=== PATIENT | female | born 1960 | race Caucasian/White ===

== ENCOUNTER 2018-01-27 10:36 | Emergency (ER) | payer OTHER ==
--- OUTSIDE RECORDS SUMMARY | 2018-01-27 10:42 | XMS REPORT ---
:1960 External Reference #:[id number] Author Organization [facility] Address [address] [place] [address] Phone [phone] Care Team Providers Name Role Phone Carla Schwartz M.D. Care Team Information Foundation Relations Manager Unavailable Carla Schwartz M.D. Primary Care Physician Unavailable Payers Type Date Identification Numbers Payment Provider Subscriber Commercial Policy Number: [id number] Abena Collier PayID: [id number] [address] [address] [place] [address] Medigap Part B Effective: 2016 Policy Number: Marcio Dumont [id number] Expires: 2017 PayID: [id number] [address] Attn: [place] [address] Medigap Part B Effective: 2017 Policy Number: Tim Collier [id number] PayID: [id number] [address] [place] [address] Problems Description No Information Family History Date Family Member(s) Problem(s) Comments Father Osteoarthritis Father Hypertension Father Prostate Cancer Mother Miller Thyroiditis Paternal Grandfather due to Lung Cancer () Paternal Grandmother due to CAD () Maternal Grandfather due to NC () Maternal Grandmother due to Stroke () Maternal Grandmother due to Diabetes () Social History Type Date Description Comments Marital Status . Lives With Spouse Diet Healthy, Well Balanced Sleep Typically sleeps 7 hours a night Cigarette Use Never Smoked Cigarettes ETOH Use Rare a couple times per year Recreational Drug Use Never Used Drugs Exercise Type/Frequency Running Every day with the dog Guns in Home Yes, Locked Up Smoke Alarms Yes Smoke Alarms Carbon Monoxide Detector: Yes Currently Active Patient is currently sexually active Dom Violence Screen screening has not been done P/e safe Allergies, Adverse Reactions, Alerts Date Description Reaction Status Severity Comments 03/07/2017 NKDA active 03/07/2017 Dust active 03/07/2017 Mold active Medications Medication Date Status Form Strength Qnty SIG Indications Ordering Provider Emla 01/16/ Active Cream 2.5-2.5% 5gm apply thin N94.11 2017 layer to Berkley, vaginal GREEN MEAT PACKER introitus 40-60 minutes prior to pap exam Levothyroxine 04/23/ Active Tablets 125mcg 90tabs 1 by mouth E03.9 Ruth C. Sodium 2018 every day [place] Ventolin HFA 03/07/ Active Aerosol 108(90Base 18gm take 1-2 J45.909 Ruth Wolf 2016 ) mcg/Act puffs [place] PILOT STEAM YACHT every 4 hours as needed for wheezing or tightness in the chest Osteo Bi-Flex / Active Tablets 1 by mouth Unknown Advanced Triple 0000 every day Strength Multivitamin / Active Tablets 1 by mouth Unknown And Minerals 0000 every day Vitamin D3 00/ Active Tablets once daily Unknown Complete 0000 Fish Oil / Active Capsules 1000mg take one Unknown 0000 capsule by mouth every day (heart health) Levothyroxine 03/07/ Hx Tablets 137mcg 30tabs Take one E03.9 Ruth C. Sodium 2016 - by mouth Mario Alberto 04/23/ daily PILOT STEAM YACHT 2018 Synthroid / Hx Tablets 137mcg 1 by mouth Unknown 0000 - every day 2017 Vital Signs Date Vital Result Comment 01/16/2018 BP Systolic 122 mmHg BP Diastolic 72 mmHg Heart Rate 60 /min Body Temperature 97.9 F Height 65.5 inches 5'5.50" Weight 122.00 lb BMI (Body Mass Index) 20.0 kg/m2 03/07/2017 BP Systolic 128 mmHg BP Diastolic 80 mmHg Heart Rate 60 /min Body Temperature 98.2 F Respiratory Rate 16 /min Height 65.5 inches 5'5.50" Weight 122.00 lb BMI (Body Mass Index) 20.0 kg/m2 Results Test Date Test Result H/L Range Note Laboratory test finding 06/11/2017 TSH 0.51 mIU/L 0.50-6.00 Laboratory test finding 04/23/2017 TSH 0.43 mIU/L Low 0.50-6.00 1 Laboratory test finding 03/07/2017 TSH 0.48 mIU/L Low 0.50-6.00 2 Free T4 1.36 ng/dL 0.75-1.54 Free T3 2.35 pg/mL 2.00-4.90 1 RESULTS VERIFIED BY REPEAT ANALYSIS 2 RESULTS VERIFIED BY REPEAT ANALYSIS Procedures Description No Information Encounters Type Date Location Provider CPT E/M Dx Office Visit 03/07/2017 2:30p [facility] Office [place], [place] [address] E03.9 S66.107S J45.909 Plan of Care 01/16/2018 - Dian Gooden, FNPZ12.39 Encounter for oth screening for malignant neoplasm of bukzqqL99.220 Encounter for screening for lipoid disordersNew Labs:CCS-Comp And Lipid (Fma)T4 & TSHCBC Electronic (Fma New) Z12.11 Encounter for screening for malignant neoplasm of colonComments:referral provided to the docs who do this testN94.11 Superficial (introital) dyspareuniaNew Medication:Emla 2.5-2.5 %M25.561 Pain in right kneeAllComments:~B _~U_Medication Management~b_~u_ Patient Understands medications he 's taking? Yes No Are there Barriers to Adherence? Yes No Has the patient been asked about herbal supplements and therapies, and OTC meds? Yes No As always, we strongly encourage a healthy diet and makingphysical activity a part of your every day life. If you have questions about how or where to start, please contact the office.
[2018-01-27 11:06] VITALS: BP 126/91
[2018-01-27] MEDS ORDERED: Tetracaine 0.5% OPTH.SOL 4 ML* 1 DROP BTL RIGHT EYE ONE (11:06)
[2018-01-27] MEDS ORDERED: Fluorescein Sodium TOPICAL* 1 MG TEST STRIP OPHTHALMIC ONE (11:06)
--- NOTE | 2018-01-27 11:08 | UC ---
Eye Complaint HPI - HPI Summary HPI Summary: 57 yo female presents with RIGHT eye injury. She tells me that yesterday she was walking her dog and bent down to clean up after him when a stick from a plant poked her in the RIGHT eye. She had mild pain at the time that has persisted into today. Eye is mildly red. Denies vision changes. Does not wear contacts. - History of Current Complaint Chief Complaint: UCEye Stated Complaint: R EYE COMPLAINT Time Seen by Provider: 01/27/18 11:08 Hx Obtained From: Patient Onset/Duration: Sudden Onset Timing: Constant Severity Initially: Mild Severity Currently: Mild Pain Intensity: 2 Pain Scale Used: 0-10 Numeric - Allergies/Home Medications Allergies/Adverse Reactions: Allergies Allergy/AdvReac Type Severity Reaction Status Date / Time No Known Allergies Allergy Verified 01/27/18 11:06 PMH/Surg Hx/FS Hx/Imm Hx Endocrine History: Hypothyroidism - Surgical History Surgical History: Yes Surgery Procedure, Year, and Place: tonsils - Family History Known Family History: Positive: None - Social History Occupation: Employed Full-time Lives: With Family Alcohol Use: Rare Substance Use Type: None Smoking Status (MU): Never Smoked Tobacco Review of Systems Constitutional: Negative Skin: Negative Eyes: Eye Redness - Right ENT: Negative Respiratory: Negative Cardiovascular: Negative Neurovascular: Negative Neurological: Negative Psychological: Negative All Other Systems Reviewed And Are Negative: Yes Physical Exam - Summary Physical Exam Summary: GENERAL: WDWN. No pain distress. SKIN: No rashes, sores, lesions, or open wounds. HEENT: Head: AT/NC Eyes: EOM intact. PERRLA. RIGHT EYE: Mild scleral injection. Mild clear tearing. No conjunctiva inflammation. LEFT EYE: Conjunctiva clear without inflammation or discharge. No FBs appreciated. Fluorescein exam right eye: WNL. No area of increased uptake, abrasion, or brandy sign. Nose: NTTP maxillary and frontal sinus. NECK: Supple. Nontender. No lymphadenopathy. CHEST: No accessory muscle use. Breathing comfortably and in no distress. CV: Pulses intact. Cap refill <2seconds NEURO: Alert. PSYCH: Age appropriate behavior. Triage Information Reviewed: Yes Vital Signs: Initial Vital Signs Temp 98.7 F 01/27/18 10:59 Pulse 71 01/27/18 10:59 Resp 18 10/09/18 10:59 BP 126/91 01/27/18 10:59 Pulse Ox 98 01/27/18 10:59 Vital Signs Reviewed: Yes Eye Complaint Course/Dx - Course Course Of Treatment: Right eye injury - will cover her with anbx eye drops as she had an introduction of foreign material. - Differential Dx/Diagnosis Provider Diagnoses: Right eye injury Discharge - Sign-Out/Discharge Documenting (check all that apply): Patient Departure All imaging exams completed and their final reports reviewed: No Studies - Discharge Plan Condition: Stable Disposition: HOME Prescriptions: Ofloxacin 0.3% (Eye Drop) [Ocuflox OPTH 0.3% (Eye Drop)] 1 drop RIGHT EYE QID # 1 btl Patient Education Materials: Corneal Abrasion (ED) Referrals: Carla Schwartz MD [Primary Care Provider] - Additional Instructions: If you develop a fever, shortness of breath, chest pain, new or worsening symptoms - please call your PCP or go to the ED. - Billing Disposition and Condition Condition: STABLE Disposition: Home
== END 2018-01-27 11:39 | disposition home or self-care (01) ==
LOC: UCEAST 10:36
DX: S05.91XA Unspecified injury of right eye and orbit, initial encounter (principal); W22.8XXA Striking against or struck by other objects, initial encounter; Y93.K1 Activity, walking an animal; Y92.9 Unspecified place or not applicable
CPT/HCPCS: 99212; A9270-GY; G0463

== ENCOUNTER 2018-03-20 08:20 | Day surgery (SDC) | payer OTHER ==
[~2018-03-20 08:20] MED LIST: Buffered Lidocaine 0.9% SYRIN* 5 ML/SYR SYRINGE INTRADERM ONE; Sodium Citrate/Citric Acid* 15 ML UDC PO ONE
[2018-03-20] MEDS ORDERED: ceFAZolin 2 GM PREMIX in ORs 2 GM/50 ML BAG IVPB ONE (08:41)
[2018-03-20] MEDS ORDERED: Sodium Citrate/Citric Acid* 15 ML UDC ONE (08:41)
[2018-03-20] MEDS ORDERED: EPINEPHRINE 1 MG/ML 1 ML VIAL ONE (08:52)
[2018-03-20] MEDS ORDERED: Bupivacaine 0.5% PF 10 ML VIAL INJ ONE (09:37)
[2018-03-20] MEDS ORDERED: Midazolam* 1 MG/ML 2 ML VIAL (2 MG) ONE ×2 (12:06→12:16)
[2018-03-20] MEDS ORDERED: Chloroprocaine 2%* 20 ML VIAL ONE (12:06)
[2018-03-20] MEDS ORDERED: fentaNYL* 50 MCG/ML 2 ML VIAL (100 MCG VIAL) IV PRN (13:22)
[2018-03-20] MEDS ORDERED: Naloxone* 0.4 MG/ML 1 ML VIAL IV PRN (13:22)
[2018-03-20] MEDS ORDERED: Ketorolac INJ* 30 MG/ML 1 ML VIAL IV PRN (13:22)
[2018-03-20 14:57] VITALS: BP 145/96
--- NOTE | 2018-03-23 07:50 | OP ---
OPERATIVE NOTE: DATE OF OPERATION: 03/20/18 DATE OF : 56 SURGEON: Addi Ogden MD. ASSISTANTS: DENA Holland. A physician content assistant was required for the length of procedure for assistance with positioning, knee manipulation, and closure. ANESTHESIOLOGIST: Jovany Starkey DO. ANESTHESIA: Spinal anesthesia. PRE-OP DIAGNOSES: 1. Right knee displaced medial meniscus tear. 2. Right knee osteoarthritis. POST-OP DIAGNOSES: 1. Right knee displaced medial meniscus tear. 2. Right knee osteoarthritis. OPERATIVE PROCEDURES: 1. Right knee arthroscopic partial medial meniscectomy. 2. Right knee arthroscopic debridement including removal of synovitic tissue anterior and removal of osteophytes just anterior to the anterior horn of the medial meniscus. IV FLUIDS: 550 mL crystalloid. ANTIBIOTICS: Ancef 2 g IV. TOURNIQUET TIME: 26 minutes at 300 mmHg. ILQY-VY-ULMX TIME: 25 minutes. ARTHROSCOPIC FLUID UTILIZED: One bag, containing 3 L for approximately 3 L of arthroscopic fluid uti lized. SPECIMEN: None. IMPLANTS: None. COMPLICATIONS: None. ESTIMATED BLOOD LOSS: Minimal. 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 The patient had a d iscrete injury several years ago when getting out of a car, when she felt a discrete shooting pain ab out the medial joint line. The medial knee pain has worsened with time. The patient had been consul wendy with another orthopedic surgeon in the past, who recommended a total knee replacement, but the pa tient loves to run and did not want a knee arthroplasty. Because the patient had sharp, shooting occa sional pain in the medial aspect of the knee, someone had ordered an MRI of the knee. At her first [facility] visit with me, I reviewed this MRI. Besides clear arthritic changes, with nearly nboo-yw-mqml joint space narrowing in the medial compartment and osteophytes, the patient also had a clear large d isplaced meniscus fragment, interposed between the central weightbearing areas of medial femoral cond yle and medial tibial plateau. I explained to the patient that I do not typically recommend knee arthroscopy in the setting of such advanced arthritis. There are exceptions such as loose bodies that are symptomatic and large displac ed meniscal tears that are symptomatic. The patient was interested in surgery. I described risks and potential complications of surgery. I told the patient that given her arthriti s, she might have some temporary worsening of the pain postoperatively. This could even be permanent . The patient will need to have to hold off on running for at least 6 weeks postoperative to allow s ome recovery. The surgery would be a trauma in and of itself that might exacerbate some of her arthr itis symptoms. We opted to move forward with surgery. DESCRIPTION OF PROCEDURE: In preoperative holding, the patient signed a written consent. Operative extremity was marked in preoperative holding. The patient was taken back to the operating room and pl aced supine on the operating room table. Dr. Jovany Starkey of anesthesia then performed a spinal nerve block. He also provided some general s edation. A tourniquet was placed around the right proximal thigh. The right distal thigh was placed in a circumferential thigh cuellar. Bed was elevated and the foot of the bed was dropped. Right low er extremity was prepped and draped. Surgical time-out was performed. Esmarch was applied and the t ourniquet was elevated to 300 mmHg. Anterolateral knee arthroscopy portal was established using standard technique. I encountered signif icant synovitis anteriorly. I established an anteromedial arthroscopy portal under direct visualizat ion. I entered an arthroscopic shaver and used it to debride some of this anterior synovitic tissue. There were osteophytes on the inferior aspect of the patella. There were some wear of the trochlea r groove. I proceeded to the medial compartment. There was a prominent osteophyte about the anterio r aspect of the medial tibial plateau just central and anterior to the anterior horn of the medial me niscus. I then looked into the medial compartment and noted a complex meniscal tear of the body. It was not displaced quite as much as preoperative MRI demonstrated, but there was displacement into the central weightbearing portion of this compartment. A large aspect of the medial tibial plateau had grade 4 changes to its articular cartilage, with complete loss of articular cartilage. The patient's ACL and PCL were intact. I then made a new anteromedial knee arthroscopy protal under direct visualization to work on the medi al compartment. I debrided the medial meniscus back to a stable rim of tissue using an arthroscopic shaver and meniscus biters. I worked through the medial compartment and then through the lateral com partment. To work through the lateral compartment, I established a new anterolateral portal. I also used my sha romy on forward mode to debride the osteophytes about the anterior aspect of the medial tibial plateau , as it was blocking an instrument from entering the compartment and performing work. I probed the r eminder of meniscus. It was stable. I then explored the lateral compartment of the knee. There was no meniscus tear present there. Ther e were some degenerative changes of the articular cartilage. I removed instruments and fluids from the knee. I closed skin incisions with figure-of-8 and 12 stit ches using nylon 3-0 suture. Xeroform, 4x4s, ABDs, sterile Webril, Zion bandage from foot to proximal thigh, cooling unit. DISPOSITION: The patient was discharged home. She was given Percocet as needed for pain control. S he will also be placed on aspirin 325 mg p.o. b.i.d. x30 days postoperatively. She will follow up wi th ga in clinic 10 to 14 days postoperatively. Wound care instructions were provided. The patient w ill follow up in the clinic 10 to 14 days postoperatively. The patient will start physical therapy im mediately for strengthening and range of motion. She will use crutches as needed. [id number]/[facility] #: [id number]
== END 2018-03-20 15:00 | disposition home or self-care (01) ==
LOC: OR 08:20
PROVIDERS: ATTEND Orthopaedic Surgery
DX: M23.221 Derangement of posterior horn of medial meniscus due to old tear or injury, right knee (principal); M17.11 Unilateral primary osteoarthritis, right knee; E03.9 Hypothyroidism, unspecified; J45.909 Unspecified asthma, uncomplicated; M19.90 Unspecified osteoarthritis, unspecified site; D64.9 Anemia, unspecified
CPT/HCPCS: A9270-GY; J0690; J2250; J2400

== ENCOUNTER 2019-05-15 11:59 | Emergency (ER) | payer OTHER ==
[2019-05-15] MEDS ORDERED: NS 0.9% 1000 ML** 1,000 ML IV ONE (12:16)
--- NOTE | 2019-05-15 12:17 | ED ---
Hypertension - HPI Summary HPI Summary: This patient is a 59 year old F presenting to [facility] with a chief complaint of high blood pressure of around 170/90 since today 05/15/19. Symptoms aggravated by nothing. Symptoms alleviated by nothing. Patient reports a few days ago visible blood in urine and at doctors appointment today her sample had blood. Denies pain or burning when urinating, pain in lower back, fever, CP, increased frequency of urination, vomiting, diarrhea, vision changes, or injuries to back. Denies hx kidney stones, heart problems, diabetes, HTP. Reports trouble breathing, coughing, sore throat, congestion due to current cold. Has been on tx of Penicillin for dental implant. Denies smoking. Usually exercise on regular basis. - History of Current Complaint Chief Complaint: EDHypertension Stated Complaint: HIGH BP, BLOOD IN URINE PER PT Time Seen by Provider: 05/15/19 12:05 Hx Obtained From: Patient Onset/Duration: Started Hours Ago, Still Present Timing: Constant Aggravating Factor(s): Nothing Alleviating Factor(s): Nothing Associated Signs & Symptoms: Other: - Reports trouble breathing, coughing, sore throat, congestion due to current cold, blood in urine;Denies pain or burning when urinating, pain in lower back, fever, CP, increased frequency of urination , vomiting, diarrhea, vision changes, or injuries to back - Allergies/Home Medications Allergies/Adverse Reactions: Allergies Allergy/AdvReac Type Severity Reaction Status Date / Time Environmental Allergies Allergy Unknown Asthma Uncoded 05/15/19 12:14 PMH/Surg Hx/FS Hx/Imm Hx Endocrine/Hematology History: Reports: Hx Thyroid Disease, Hx Anemia - history of-1978 Denies: Hx Diabetes Cardiovascular History: Denies: Hx Hypertension, Hx Pacemaker/ICD, Other Cardiovascular Problems/ Disorders Respiratory History: Reports: Hx Asthma Denies: Other Respiratory Problems/Disorders GI History: Reports: Hx Gastroesophageal Reflux Disease - tums, Hx Hiatal Hernia , Hx Ulcer - stomach, Other GI Disorders - gastritis History: Reports: Other Problems/Disorders - Frequent urination Musculoskeletal History: Reports: Hx Arthritis - Bilateral knees, Other Musculoskeletal History - right torn medial meniscus Denies: Hx Rheumatoid Arthritis - OA, Hx Osteoporosis Sensory History: Reports: Hx Contacts or Glasses - Reading glasses Denies: Hx Hearing Aid Opthamlomology History: Reports: Hx Contacts or Glasses - Reading glasses Neurological History: Denies: Other Neuro Impairments/Disorders Psychiatric History: Denies: Hx Panic Disorder - Cancer History Hx Chemotherapy: No Hx Radiation Therapy: No - Surgical History Surgery Procedure, Year, and Place: tonsils Hx Anesthesia Reactions: No Infectious Disease History: No Infectious Disease History: Denies: History Other Infectious Disease, Traveled Outside the [place] in Last 30 Days - Family History Known Family History: Positive: Other - hyperthyroidisim, heart dz, arthritis, [place] - Social History Alcohol Use: None Hx Substance Use: No Substance Use Type: Reports: None Hx Tobacco Use: No Smoking Status (MU): Never Smoked Tobacco Review of Systems Negative: Fever Positive: Other - denies vision changes Positive: Sore Throat, Other - congestion Positive: Other - high BP. Negative: Chest Pain Positive: Cough, Other - reports trouble breathing Negative: Vomiting, Diarrhea Positive: other - blood in urine. Negative: burning, dysuria, frequency Positive: Other - denies pain in lower back, All Other Systems Reviewed And Are Negative: Yes Physical Exam - Summary Physical Exam Summary: Constitutional: Well-developed, Well-nourished, Alert. (-) Distressed Skin: Warm, Dry HENT: Normocephalic; Atraumatic Eyes: Conjunctiva normal Neck: Musculoskeletal ROM normal neck. (-) JVD, (-) Stridor, (-) Tracheal deviation Cardio: Rhythm regular, rate normal, Heart sounds normal; Intact distal pulses; The pedal pulses are 2+ and symmetric. Radial pulses are 2+ and symmetric. (-) Murmur Pulmonary/Chest wall: Effort normal. (-) Respiratory distress, (-) Wheezes, (-) Rales Abd: Soft, (-) tenderness, (-) Distension, (-) Guarding, (-) Rebound Musculoskeletal: (-) Edema Lymph: (-) Cervical adenopathy Neuro: Alert, Oriented x3 Psych: Mood and affect Normal Triage Information Reviewed: Yes Vital Signs On Initial Exam: Initial Vitals Temp Pulse Resp BP Pulse Ox 98.6 F 56 14 186/118 99 05/15/19 12:01 05/15/19 12:01 05/15/19 12:01 05/15/19 12:05/15/19 12:01 Vital Signs Reviewed: Yes Procedures - Sedation Patient Received Moderate/Deep Sedation with Procedure: No Diagnostics - Vital Signs Vital Signs Temp Pulse Resp BP Pulse Ox 05/15/19 12:01 98.6 F 56 14 186/118 99 - Laboratory Result Diagrams: 05/15/19 12:28 05/15/19 12:28 Lab Statement: Any lab studies that have been ordered have been reviewed, and results considered in the medical decision making process. - EKG 1245 Cardiac Rate: NL - 51 BPM Summary of EKG Findings: An EKG taken at 1245 reveals sinus bradycardia at rate 51 BPM and no ischemic changes. Dr. Leon has reviewed and interpreted this EKG. Re-Evaluation - Re-Evaluation First Eval Re-Evaluation Time: 14:20 Comment: plan of care was discussed Hypertension Course/Dx - Course Course Of Treatment: This patient is a 59 year old F presenting to [facility] with a chief complaint of high blood pressure of around 170/90 since today 05/15/19. Patient reports a few days ago visible blood in urine and at doctors appointment today her sample had blood. Denies pain or burning when urinating, pain in lower back, fever, CP, increased frequency of urination, vomiting, diarrhea, vision changes, or injuries to back. Denies hx kidney stones, heart problems, diabetes, HTP. Reports trouble breathing, coughing, sore throat, congestion due to current cold. Physical Exam Findings reveal no abnormalities. An EKG taken at 1245 reveals sinus bradycardia at rate 51 BPM and no ischemic changes. ED physician has reviewed this radiology report and agrees. Test results with no significant abnormalities expect for MPV 7.2 L, Glucose 101 H, Ur Specific [place] 1.009 L, Urine Blood 3+ A, Urine RBC 3+ (>10/hpf) A, Amorphous Crystals Present A. In the ED course the patient was given saline. Patient will be discharged with dx hematuria and elevated blood pressure and follow up from Dr. Schwartz on Friday05/17/19. The patient is agreeable with this plan. Patient asymptomatic with elevated blood pressure. No headache, visual changes, dizziness, CP/pressure. As noted patient healthy, exercises on a regular basis. Patient encouraged to keep a BP log at home for the next several days and then follow-up with her PCP for further evaluation of her BP as well as a repeat urinalysis given asymptomatic hematuria. - Diagnoses Provider Diagnoses: Hematuria, Elevated blood pressure reading Discharge ED - Sign-Out/Discharge Documenting (check all that apply): Patient Departure - discharge - Discharge Plan Condition: Stable Disposition: HOME Patient Education Materials: Hematuria (ED), Hypertension (ED) Referrals: Carla Schwartz MD [Primary Care Provider] - 2 Days Additional Instructions: Follow up with Dr. Schwartz on Friday05/17/19. - Billing Disposition and Condition Condition: STABLE Disposition: Home - Attestation Statements Document Initiated by Scribe: Yes Documenting Scribe: Jazmine Maldonado Provider For Whom Araceli is Documenting (Include Credential): Rishabh NielsonODaphne Scribe Attestation: Jazmine Ibanez, scribed for Dr. Gerald Leon DEliecer on 05/15/19 at 1613. Scribe Documentation Reviewed: Yes Provider Attestation: The documentation as recorded by the pabltioibJazmine last accurately reflects the service I personally performed and the decisions made by me, Rishabh NielsonODaphne Status of Scribe Document: Viewed
--- OUTSIDE RECORDS SUMMARY | 2019-05-15 12:31 | XMS REPORT | Continuity of Care Document ---
:1960 External Reference #:[id number] Author Name DENA Gurrola Address [address] [facility] [place] [address] Care Team Providers Name Role Phone Carla Schwartz M.D. - Family Medicine Care Team Information Caustics Loader Unavailable Aleida Soto MD - Sports Medicine Care Team Information Caustics Loader [phone] Problems Active Problems Provider Date Hypothyroidism Carla Schwartz M.D. Onset: 03/03/2018 Social History Type Date Description Comments Sex Unknown Tobacco Use Start: Unknown Never Smoked Cigarettes ETOH Use Rare a couple times per year Recreational Drug Use Never Used Drugs Tobacco Use Start: Unknown Nonsmoker Smoking Status Reviewed: 05/15/19 Nonsmoker Exercise Type/Frequency Running Every day with the dog Guns in Home Yes, Locked Up Smoke Alarms Yes Smoke Alarms Carbon Monoxide Detector: Yes Allergies, Adverse Reactions, Alerts Active Allergies Reaction Severity Comments Date NKDA 03/07/2017 Dust 03/07/2017 Mold 03/07/2017 Medications Active Medications SIG Qnty Indications Ordering Provider Date Diclofenac Sodium apply 4 gm to 300gm M25.561 Carla Schwartz, 09/21/2018 1% right knee joint M.D. Gel twice a day as needed Levothyroxine Sodium 1 by mouth every 90tabs E03.9 Dian 01/29/2018 day LUL Gooden 100mcg Tablets Ventolin HFA take 1-2 puffs 18gm J45.909 Ruth Wolf 03/07/2017 inhaled every 4 HARLEEN [place] 108(90Base) mcg/Act hours as needed Aerosol for wheezing or tightness in the chest Osteo Bi-Flex 1 by mouth every Unknown Advanced Triple day Strength Tablets Multivitamin And 1 by mouth every Unknown Minerals day Tablets Vitamin D3 Complete once daily Unknown Tablets Fish Oil take one capsule Unknown 1000mg by mouth every Capsules day (heart health) Turmeric Unknown 450mg Capsules Immunizations Description No Information Available Vital Signs Date Vital Result Comment 05/15/2019 10:51am BP Systolic 162 mmHg BP Diastolic 90 mmHg BP Systolic Recheck 170 mmHg BP Diastolic Recheck 96 mmHg Heart Rate 68 /min Body Temperature 97.9 F Height 65 inches 5'5" Weight 124.00 lb BMI (Body Mass Index) 20.6 kg/m2 09/21/2018 3:25pm BP Systolic 130 mmHg BP Diastolic 90 mmHg Heart Rate 62 /min Body Temperature 98.2 F Respiratory Rate 16 /min Height 65 inches 5'5" Weight 121.00 lb BMI (Body Mass Index) 20.1 kg/m2 Results Description No Information Available Procedures Date Code Description Status 02/09/2018 [id number] Mammogram Completed Medical Devices Description No Information Available Encounters Description No Information Available Assessments Date Code Description Provider 05/15/2019 I16.0 Hypertensive urgency DENA Gurrola 05/15/2019 R31.0 Gross hematuria DENA Gurrola Plan of Treatment 05/15/2019 - Joselin Maloney, PAI16.0 Hypertensive urgencyComments:Concern for acute kidney injury due to your elevated blood pressure and blood in urine. You are being sent to the ER at [facility] for further evaluation. Patient was offered ambulance but declined and will drive herself immediately to the ER for further evaluation. Risks of not complying with this recommendation include kidney failure or even .R31.0 Gross hematuriaNew Labs:Ua - Micro ([facility]), Ordered: 05/15/19AllComments:PCMHMedication Management Patient Understands medications he's taking? Yes Are there Barriers to Adherence? No Has the patient been asked about herbal supplements and therapies, and OTC meds? Yes Care Plan1. Patient has been queried about patient's goals/preferences and functional/lifestyle goals at relevant visits. Yes If relevant, describe: N/A2. Treatment goals as explained to the patient: above3. Are there barriers to meeting treatment goals? No If Yes, please describe:4. Self-Management goals as described to the patient: Yes As always, we strongly encourage a healthy diet and making physical activity a part of your every day life. If you have questions about how or where to start, please contact the office. Functional Status Description No Information Available Mental Status Description No Information Available Referrals Description No Information Available
[2019-05-15 12:33] LABS: ABS Basophils 0.1 10^3/ul (0-0.2); ABS Eosinophils 0.1 10^3/ul (0-0.6); ABS Lymphocytes 1.4 10^3/ul (1.0-4.8); ABS Monocytes 0.6 10^3/ul (0-0.8); ABS Neutrophils 4.9 10^3/ul (1.5-7.7); Eosinophil % 1.7 %; Hematocrit 39 % (35-47); Hemoglobin 13.2 g/dL (12.0-16.0); Lymphocyte % 19.9 %; Mean Corpuscular HGB Conc 34 g/dL (31-36); Mean Corpuscular Hemoglobin 29 pg (27-31); Mean Corpuscular Volume 86 fL (80-97); Mean Platelet Volume 7.2 fL (7.4-10.4); Platelet Count 350 10^3/uL (150-450); Red Blood Count 4.54 10^6 /uL (3.70-4.87); Red Cell Distribution Width 13 % (10-15)
[2019-05-15 12:50] LABS: Albumin 4.2 g/dL (3.2-5.2); Albumin/Globulin Ratio 1.8 (1-3); BUN/Creatinine Ratio 19.7 (8-20); Calcium 9.2 mg/dL (8.6-10.3); EGFR African American 93.6 (>60); EGFR Non-African American 77.4 (>60); Globulin 2.3 g/dL (2-4); Potassium 4.2 mmol/L (3.5-5.0); Total Bilirubin 0.4 mg/dL (0.2-1.0); Total Protein 6.5 g/dL (6.4-8.9)
[2019-05-15 13:45] LABS: Urine Appearance Cloudy; Urine Bilirubin Negative (Negative); Urine Blood 3+ (Negative); Urine Color Yellow; Urine Glucose Negative (Negative); Urine Ketones Negative (Negative); Urine Nitrite Negative (Negative); Urine Protein Negative (Negative); Urine Specific Gravity 1.009 (1.010-1.030); Urine Urobilinogen Negative (Negative)
[2019-05-15 13:49] LABS: Urine Bacteria Absent (Absent); Urine Red Blood Cell 3+(>10/hpf) (Absent); Urine White Blood Cell Absent (Absent)
[2019-05-15 14:47] VITALS: BP 172/95
== END 2019-05-15 14:47 | disposition home or self-care (01) ==
LOC: ED 11:59
DX: R03.0 Elevated blood-pressure reading, without diagnosis of hypertension (principal); R31.9 Hematuria, unspecified; E07.9 Disorder of thyroid, unspecified; D64.9 Anemia, unspecified; J45.909 Unspecified asthma, uncomplicated; K21.9 Gastro-esophageal reflux disease without esophagitis
CPT/HCPCS: 36415; 80053; 81003; 81015; 85025; 93005; 99283

== ENCOUNTER 2019-06-03 05:49 | Day surgery (SDC) | payer OTHER ==
--- NOTE | 2019-06-01 10:27 | HP ---
CC: Dr. Carla Schwartz * ADMITTING HISTORY AND PHYSICAL: DATE OF ADMISSION: 06/03/19 ADMITTING DIAGNOSES: 1. Right hydronephrosis 2. Calculus right proximal ureter. PLANNED PROCEDURE: Right ureteroscopy possible laser and stent insertion. SURGEON: Dr. Wooten. ADMITTING HISTORY AND PHYSICAL: Haley Collier is a 59-year-old lady who initially had gross hematuria about 3 weeks ago. This was initially painless and has happened several times since then. She was subsequently evaluated and noted to have an approximately 6 mm calculus in the proximal right ureter about 8 cm from the renal pelvis with mild right hydronephrosis. She was seen back in followup and was noted to have a persistent calculus in the right proximal ureter and since the symptoms have now been going on for over 3 weeks, she would like to go ahead and proceed with right ureteroscopy, possible laser and stent insertion. PAST MEDICAL HISTORY: Significant for: 1. Hypothyroidism. 2. Asthma. PAST SURGICAL HISTORY: Significant for tonsillectomy and right knee meniscus surgery. Smoking history, she is a non-smoker. MEDICATIONS ON ADMISSION: 1. Levothyroxine 100 mcg daily. 2. Estradiol 0.1 mg for use as the vaginal ointment. 3. Diclofenac sodium 4 g applied to right knee joint twice a day as needed. 4. Ventolin inhaler p.r.n. 5. Multiple supplements. ALLERGIES: No known drug allergies. FAMILY HISTORY: Negative for stones. REVIEW OF SYSTEMS: She is otherwise in excellent health. There is no history of diabetes mellitus or any other major systemic illness. She denies any chest pain or shortness of breath. PHYSICAL EXAMINATION GENERAL: Reveals a pleasant healthy appearing lady. VITAL SIGNS: Blood pressure 118/72, pulse 62 per minute regular, temperature 96.4, oxygen saturation 97% on room air. LUNGS: Clear bilaterally. CARDIOVASCULAR: Regular rate and rhythm. S1, S2. ABDOMEN: Soft with mild right flank tenderness. IMPRESSION: I had a detailed discussion with Mrs. Collier regarding the management options for the right proximal ureteral calculus, and I also offered her continued conservative management for another few weeks to see if the stones will pass. However, at this point she would like to go ahead and proceed with endoscopic treatment and is now being brought in for right ureteroscopy, possible laser and stent insertion. [id number]/[facility] #: [id number] [facility]
[~2019-06-03 05:49] MED LIST changes: -Buffered Lidocaine 0.9% SYRIN* 5 ML/SYR SYRINGE INTRADERM ONE; +Buffered Lidocaine 1% SYRIN* 1 ML/SYRINGE INTRADERM ONE; -Sodium Citrate/Citric Acid* 15 ML UDC PO ONE
[2019-06-03] MEDS ORDERED: Dexamethasone IV* 4 MG/ML 1 ML (4 MG) IV SLOW PU ONE (06:00)
[2019-06-03] MEDS ORDERED: Famotidine IV* 10 MG/ML 2 ML (20 mg) IV ONE (06:00)
[2019-06-03] MEDS ORDERED: Levalbuterol 0.63MG/3ML NEB* UNIT OF USE INH ONE ×2 (06:00→06:36)
[2019-06-03] MEDS ORDERED: Ondansetron ODT TAB* 4 MG PO ONE (06:00)
[2019-06-03] MEDS ORDERED: Lactated Ringers 1000 ML Bag* 1,000 ML IV SCH (06:00)
[2019-06-03] MEDS ORDERED: HYDROmorphone INJ1* 1 MG/ML SYRINGE IV PRN (06:19)
[2019-06-03] MEDS ORDERED: PROCHLORPERAZINE INJ 5 MG/ML 2 ML VIAL IV PRN (06:19)
[2019-06-03] MEDS ORDERED: Naloxone* 0.4 MG/ML 1 ML VIAL IV PRN (06:19)
[2019-06-03] MEDS ORDERED: fentaNYL* 50 MCG/ML 2 ML VIAL (100 MCG VIAL) IV PRN (06:19)
[2019-06-03] MEDS ORDERED: Scopolamine 1.5 mg* PATCH TRANSDERM PRN (06:19)
[2019-06-03] MEDS ORDERED: oxyCODONE TAB* 5 MG TAB PO PRN (06:19)
[2019-06-03] MEDS ORDERED: DiMENhydriNATE IV* 50 MG/ML VIAL IV PUSH PRN (06:19)
[2019-06-03] MEDS ORDERED: Famotidine IV* 10 MG/ML 2 ML (20 mg) ONE (06:36)
[2019-06-03] MEDS ORDERED: Ondansetron ODT TAB* 4 MG ONE (06:36)
[2019-06-03] MEDS ORDERED: Dexamethasone IV* 4 MG/ML 1 ML (4 MG) ONE (06:36)
[2019-06-03] MEDS ORDERED: Buffered Lidocaine 1% SYRIN* 1 ML/SYRINGE INTRADERM ONE (06:36)
[2019-06-03] MEDS ORDERED: cefTRIAXone(*) 2 GM ADDV.VIAL IVPB ONE (06:37)
[2019-06-03] MEDS ORDERED: Iohexol 180 (CONTRAST) 10 ML SDV IV ONE (07:18)
[2019-06-03] MEDS ORDERED: fentaNYL* 50 MCG/ML 2 ML VIAL (100 MCG VIAL) ONE (07:50)
[2019-06-03] MEDS ORDERED: Midazolam* 1 MG/ML 5 ML VIAL (5 MG) ONE (07:50)
[2019-06-03] MEDS ORDERED: KETAMINE HCL* 50 MG/ML 10 ML VIAL ONE (07:50)
[2019-06-03] MEDS ORDERED: Lidocaine 2% PF * 5 ML VIAL ONE (08:20)
[2019-06-03] MEDS ORDERED: Propofol* 10 MG/ML 20 ML BTL ONE (08:20)
[2019-06-03] MEDS ORDERED: EPHEDrine (Pressors)* 50 MG/ML VIAL ONE (08:25)
[2019-06-03] MEDS ORDERED: Glycopyrrolate IV* 0.2 MG/ML 1 ML VIAL ONE (08:26)
[2019-06-03 10:30] VITALS: BP 164/98
--- NOTE | 2019-06-04 00:43 | OP ---
CC: Dr. Carla Schwartz * DATE OF OPERATION: 06/03/19 - [facility] DATE OF : 56 SURGEON: Vitaly Wooten MD. ANESTHESIOLOGIST: Dr. Ventura. ANESTHESIA: General. PRE-OP DIAGNOSIS: Calculus, right proximal ureter. POST-OP DIAGNOSIS: Calculus, right proximal ureter. OPERATIVE PROCEDURES: Cystoscopy, right retrograde pyelogram, right ureteroscopy, right pyeloscopy, and right stent insertion. COMPLICATIONS: None. POSTOPERATIVE CONDITION: Stable. STENT USED: 7-Turkmen stent, right ureter. OPERATIVE FINDINGS: Mild right hydronephrosis with no calculus visualized on inspection of distal, mid or proximal ureter or renal pelvis (possibly a calculus either passed spontaneously or migrated proximally into lower pole with advancement of the wire). POSTOPERATIVE CONDITION: Stable. INDICATIONS: Haley Collier is a 59-year-old lady who has had a persistent calculus in the proximal right ureter. DESCRIPTION OF PROCEDURE: After induction of general anesthesia, the patient was placed in the dorsal lithotomy position. Sequential compression devices were in place and functioning. Initial cystoscopy revealed a normal appearing bladder. A guidewire was introduced into the right ureter. There was some resistance to advancing the guidewire in the area of the [id number] right ureter and after some initial manipulation, the wire was advanced proximally. On the fluoroscopy, I thought I could see a radiopaque calculus in the area of the [id number] right ureter where the obstruction was and my suspicion is that the calculus migrated proximally possibly into the lower pole calyx. A 6- Turkmen semi-rigid ureteroscope was introduced and advanced under direct vision. The entire distal, mid, and proximal ureter was visualized. The ureter was fairly narrow in some segments including some tortuosity, but I was able to get all the way into the renal pelvis, which was dilated. After careful inspection of the entire ureter and the renal pelvis, the ureteroscope was carefully withdrawn and a 7-Turkmen stent was positioned under fluoroscopy with good proximal and distal positioning obtained. My plan is to obtain a postoperative x -ray to see if the calculus is visible and if that is then the next step would be to consider shockwave lithotripsy. The patient tolerated the procedure satisfactorily and was transferred back to the recovery area in stable condition. [id number]/[facility] #: [id number] [facility]
[2019-06-06] MEDS ORDERED: Scopolamine PATCH Remove* 1 NOTE MISC PATCH OFF ONE (06:19)
== END 2019-06-03 10:00 | disposition home or self-care (01) ==
LOC: OR 05:49
PROVIDERS: ATTEND Urology
DX: N20.1 Calculus of ureter (principal); J45.909 Unspecified asthma, uncomplicated; E03.9 Hypothyroidism, unspecified
CPT/HCPCS: 74018; 74420; A9270-GY; C1876; J0696; J1100; J2250; J2704; J3010

== ENCOUNTER 2019-06-11 22:51 | Emergency (ER) | payer OTHER ==
--- NOTE | 2019-06-12 00:57 | ED ---
GI/ HPI - HPI Summary HPI Summary: This patient is a 59 year old female presenting to [facility] with a chief complaint of nausea and vomiting all day today. She states she has had nausea since a right kidney stent placement 9 days ago. She states she was unable to tolerate PO today. She has back pain but she states her nausea is worse than her back pain. She denies diarrhea. - History of Current Complaint Chief Complaint: EDNauseaVomitDiarrh Time Seen by Provider: 06/12/19 00:45 Stated Complaint: NAUSEA/VOMITING PER PT Hx Obtained From: Patient Onset/Duration: Started Hours Ago Pain Intensity: 0 Associated Signs and Symptoms: Positive: Nausea, Vomiting - Allergy/Home Medications Allergies/Adverse Reactions: Allergies Allergy/AdvReac Type Severity Reaction Status Date / Time Environmental Allergies Allergy Mild Asthma Uncoded 06/12/19 00:39 Home Medications: Home Medications Levothyroxine TAB* [Synthroid 100 MCG TAB*] 100 mcg PO QAM 09/19/13 [History Confirmed 06/12/19] Albuterol HFA INHALER* [Ventolin HFA Inhaler*] 2 puff INH Q4H PRN 03/09/18 [ History Confirmed 06/12/19] Calcium Carbonate [Tums] 1 - 2 tab PO QID PRN 03/09/18 [History Confirmed ] Cholecalciferol CAP/TAB(NF) [Vitamin D3 CAP/TAB (NF)] 2 - 3 tab PO QAM 03/09/18 [History Confirmed 06/12/19] Glucosam/Chondr/Collagn/Hyalur [Glucosamine & Chondroitin Cap] 2 tab PO QAM [History Confirmed 06/12/19] Multivit with Calcium,Iron,Min [Multiple Vitamins For Women] 1 tab PO QAM [History Confirmed 06/12/19] [place]-3S/Dha/Epa/Fish Oil [Fish Oil 1,200 mg Softgel] 1 cap PO QAM 03/09/18 [ History Confirmed 06/12/19] Turmeric Root Extract [Ra Turmeric] 500 mg PO TID 06/01/19 [History Confirmed ] Diclofenac 1% GEL (NF) 1 applic TOPICAL BID PRN 06/03/19 [History Confirmed ] Hydrocodone/Acetaminophen [Hydrocodone-Acetamin 5-325 mg] 1 tab PO Q4HR PRN [History Confirmed 06/12/19] Ondansetron ODT TAB* [Zofran 4 MG Odt TAB*] 4 mg PO Q6H PRN 06/12/19 [History Confirmed 06/12/19] Prochlorperazine 10 mg TAB [Compazine 10 mg TAB] 10 mg PO Q6H PRN #12 tab [Rx] PMH/Surg Hx/FS Hx/Imm Hx Endocrine/Hematology History: Reports: Hx Thyroid Disease Denies: Hx Diabetes, Hx Anemia Cardiovascular History: Reports: Hx Hypertension - HAS BEEN HAVING SPIKES WITH BP HAS BEEN DOWN RECENTLY Denies: Hx Pacemaker/ICD, Other Cardiovascular Problems/Disorders Respiratory History: Reports: Hx Asthma - RESCUE INHALER Denies: Other Respiratory Problems/Disorders GI History: Reports: Hx Gastroesophageal Reflux Disease, Hx Hiatal Hernia, Hx Ulcer, Other GI Disorders - gastritis History: Reports: Hx Kidney Stones - RT CALCULUS 06/03/2019., Other Problems/Disorders - Frequent urination Musculoskeletal History: Reports: Hx Arthritis - Bilateral knees OSTEO, Other Musculoskeletal History - right torn medial meniscus Denies: Hx Rheumatoid Arthritis - OA, Hx Osteoporosis Sensory History: Reports: Hx Contacts or Glasses - Reading glasses Denies: Hx Hearing Aid Opthamlomology History: Reports: Hx Contacts or Glasses - Reading glasses Neurological History: Denies: Other Neuro Impairments/Disorders Psychiatric History: Denies: Hx Panic Disorder - Cancer History Hx Chemotherapy: No Hx Radiation Therapy: No - Surgical History Surgery Procedure, Year, and Place: tonsils 1961. RIGHT KNEE MENISCUS 2018 Hx Anesthesia Reactions: No Infectious Disease History: No Infectious Disease History: Denies: History Other Infectious Disease, Traveled Outside the [place] in Last 30 Days - Family History Known Family History: Positive: Other - hyperthyroidisim, heart dz, arthritis, CA - Social History Alcohol Use: Rare Hx Substance Use: No Substance Use Type: Reports: None Hx Tobacco Use: No Smoking Status (MU): Never Smoked Tobacco Have You Smoked in the Last Year: No Review of Systems Negative: Fever Positive: Vomiting, Nausea. Negative: Diarrhea Positive: Other - Back pain All Other Systems Reviewed And Are Negative: Yes Physical Exam - Summary Physical Exam Summary: Appearance: Well-appearing, Well-nourished, lying in bed comfortably Skin: Warm, dry, no obvious rash Eyes: sclera anicteric, no conjunctival pallor ENT: mucous membranes moist, pharynx appears normal Neck: Supple, nontender Respiratory: Clear to auscultation, no signs of respiratory distress Cardiovascular: Normal S1, S2. No murmurs. Normal distal pulses in tibial and radial bilaterally. Abdomen: Soft, nontender, normal active bowel sounds present Musculoskeletal: Normal, Strength/ROM Intact Neurological: A&Ox3, awake and alert, mentation is normal, speech is fluent and appropriate Psychiatric: affect is normal, does not appear anxious or depressed Triage Information Reviewed: Yes Vital Signs On Initial Exam: Initial Vitals Temp Pulse Resp BP Pulse Ox 97.6 F 51 18 160/109 100 06/11/19 23:17 06/11/19 23:17 06/11/19 23:17 06/11/19 23:17 06/11/19 23:17 Vital Signs Reviewed: Yes Procedures - Sedation Patient Received Moderate/Deep Sedation with Procedure: No Diagnostics - Vital Signs Vital Signs Temp Pulse Resp BP Pulse Ox 06/11/19 23:17 97.6 F 51 18 160/109 100 - Laboratory Result Diagrams: 06/12/19 01:26 06/12/19 01:26 Lab Statement: Any lab studies that have been ordered have been reviewed, and results considered in the medical decision making process. - Radiology Abdomen XR Radiology Interpretation Completed By: ED Physician Summary of Radiographic Findings: Calcification in the lower right kidney consistent with a recent stone. Stent is in place with no complications visualized. Pending official radiologist report. - EKG 0108 Cardiac Rate: NL - 61 BPM EKG Rhythm: Sinus Rhythm Summary of EKG Findings: NSR at 61 BPM, P waves, QRS complex, and T waves are within normal limits, T waves and intervals are normal, no ischemic changes. This is a normal EKG. ED Physician has reviewed and interpreted this EKG. GIGU Course/Dx - Course Course Of Treatment: This patient is a 59 year old female presenting to [facility] with a chief complaint of nausea and vomiting all day today. She states she has had nausea since a right kidney stent placement 9 days ago. Abdomen XR showed calcification in the lower right kidney consistent with the recent stone with the stent in place. Labs were unremarkable except Absolute Neuts 8.3 H, Absolute Lymphs 0.7 L, Anion Gap 12 H, BUN/Creatinine Ratio 23.4 H, Glucose 151 H, TSH 0.17 L, Urine Protein 2+ A, Urine Ketones 1+ A, Urine Blood 3+ A, Ur Leukocyte Esterase 1+A, Urine RBC 3+ A. Patient was administered Zofran and Compazine in the ED. Plan for discharge was discussed with the patient and she understands and agrees with this plan. - Diagnoses Provider Diagnoses: Nausea and vomiting Discharge ED - Sign-Out/Discharge Documenting (check all that apply): Patient Departure - Discharge Plan Condition: Improved Disposition: HOME Prescriptions: Prochlorperazine 10 mg TAB [Compazine 10 mg TAB] 10 mg PO Q6H PRN #12 tab PRN Reason: Nausea Patient Education Materials: Acute Nausea and Vomiting (ED) Referrals: Vitaly Wooten MD [Medical Doctor] - 1 Day - Billing Disposition and Condition Condition: IMPROVED Disposition: Home - Attestation Statements Document Initiated by Araceli: Yes Documenting Jillianibe: Hnug Schuster Provider For Whom Araceli is Documenting (Include Credential): Thomas Malone MD Scribe Attestation: Hung Ibanez, scribed for Thomas Malone MD on 06/12/19 at 2028. Scribe Documentation Reviewed: Yes Provider Attestation: The documentation as recorded by the Hung erwin accurately reflects the service I personally performed and the decisions made by , Thomas Malone MD Status of Scribe Document: Viewed
[2019-06-12] MEDS ORDERED: NS 0.9% 1000 ML** 2,000 ML IV ONE (00:58)
[2019-06-12] MEDS ORDERED: Ondansetron INJ* 2 MG/ML VIAL IV ONE (00:59)
[2019-06-12 01:45] LABS: ABS Lymphocytes 0.7 10^3/ul (1.0-4.8); ABS Monocytes 0.3 10^3/ul (0-0.8); ABS Neutrophils 8.3 10^3/ul (1.5-7.7); Hematocrit 39 % (35-47); Hemoglobin 13.3 g/dL (12.0-16.0); Lymphocyte % 7.9 %; Mean Corpuscular HGB Conc 35 g/dL (31-36); Mean Corpuscular Hemoglobin 29 pg (27-31); Mean Corpuscular Volume 85 fL (80-97); Mean Platelet Volume 7.8 fL (7.4-10.4); Platelet Count 366 10^3/uL (150-450); Red Blood Count 4.54 10^6 /uL (3.70-4.87); Red Cell Distribution Width 13 % (10-15); White Blood Count 9.3 10^3/uL (3.5-10.8)
[2019-06-12 02:02] LABS: Albumin 4.7 g/dL (3.2-5.2); Albumin/Globulin Ratio 1.7 (1-3); BUN/Creatinine Ratio 23.4 (8-20); C Reactive Protein 1.08 mg/L (<8.01); Calcium 9.5 mg/dL (8.6-10.3); EGFR African American 73.3 (>60); EGFR Non-African American 60.5 (>60); Globulin 2.7 g/dL (2-4); Potassium 3.7 mmol/L (3.5-5.0); Total Bilirubin 0.7 mg/dL (0.2-1.0); Total Protein 7.4 g/dL (6.4-8.9)
[2019-06-12 02:11] LABS: Urine Appearance Turbid; Urine Bilirubin Negative (Negative); Urine Blood 3+ (Negative); Urine Color Yellow; Urine Glucose Negative (Negative); Urine Ketones 1+ (Negative); Urine Nitrite Negative (Negative); Urine Protein 2+(100 mg/dL) (Negative); Urine Specific Gravity 1.011 (1.010-1.030); Urine Urobilinogen Negative (Negative)
[2019-06-12 02:15] LABS: Urine Bacteria Absent (Absent); Urine Red Blood Cell 3+(>10/hpf) (Absent); Urine White Blood Cell Trace(0-5/hpf) (Absent)
[2019-06-12] MEDS ORDERED: PROCHLORPERAZINE INJ 5 MG/ML 2 ML VIAL IV ONE (02:19)
[2019-06-12] MEDS ORDERED: PROCHLORPERAZINE INJ 5 MG/ML 2 ML VIAL ONE (02:21)
[2019-06-12 02:24] LABS: TSH (Thyroid Stimulating Horm) 0.17 mcIU/mL (0.34-5.60)
--- OUTSIDE RECORDS SUMMARY | 2019-06-12 03:30 | XMS REPORT | Continuity of Care Document ---
:1960 External Reference #:[id number] Author Name Carla Schwartz M.D. Address [address] [place] [address] Care Team Providers Name Role Phone Carla Schwartz M.D. 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 Onset: 03/03/2018 Atrophic vaginitis Carla Schwartz M.D. Onset: 05/25/2019 Kidney stone Carla Schwartz M.D. Onset: 06/07/2019 Social History Type Date Description Comments Sex [...] Medications Active Medications SIG Qnty Indications Ordering Date Provider Hydrocodone-Acetamin 1 by mouth every 21tabs Carla Schwartz, 06/07/2019 ophen 8 hours as M.D. 5-325mg Tablets needed Zofran every 6 hours as 14tabs N20.0 Carla Schwartz, 06/07/2019 4mg Tablets needed M.D. Docusate Sodium 2 tabs by mouth 30caps R11.0 Carla Schwartz, 06/07/2019 100mg every night prn M.D. Capsules Estradiol insert 2 grams 42.5units N95.2 Carla Schwartz, 05/25/2019 0.1mg/GM vaginally daily M.D. Cream x 2 weeks then 2 times weekly Diclofenac Sodium apply 4 gm to 300gm M25.561 Carla [place], 09/21/2018 1% right knee joint M.D. Gel twice a day as needed Levothyroxine Sodium 1 by mouth every 90tabs E03.9 Dian 01/29/2018 day LUL Gooden 100mcg Tablets Ventolin HFA take 1-2 puffs 18gm J45.909 Ruth Maryann 03/07/2017 inhaled every 4 [place] 108(90Base) mcg/Act hours as needed Aerosol for wheezing or tightness in the chest Osteo Bi-Flex 1 by mouth every Unknown Advanced Triple day Strength Tablets Multivitamin And 1 by mouth every Unknown Minerals day Tablets Vitamin D3 Complete once daily Unknown Tablets Turmeric 1 po tid Unknown 500mg Capsules Immunizations Description No Information Available Vital Signs Date Vital Result Comment 06/07/2019 6:42pm BP Systolic 116 mmHg BP Diastolic 60 mmHg Heart Rate 66 /min Body Temperature 98.4 F Respiratory Rate 16 /min Height 65 inches 5'5" Weight 123.00 lb BMI (Body Mass Index) 20.5 kg/m2 05/25/2019 10:42am BP Systolic 140 mmHg BP Diastolic 90 mmHg BP Systolic Recheck 140 mmHg BP Diastolic Recheck 90 mmHg Heart Rate 78 /min Body Temperature 97.7 F Height 65 inches 5'5" Weight 124.00 lb BMI (Body Mass Index) 20.6 kg/m2 Results Test Acquired Date Facility Test Result H/L Range Note Ua - Micro (Fma) 05/25/2019 family medicine Appearance YELLOW (607)- - Color CLEAR Glucose, Urine (Fma/[facility]) NEG Bilirubin NEG Ketones NEG SP Grav 1.020 Blood LARGE PH 6.5 Protein SSA TRACE Urobil 0.2 Nitrite NEG Leukocytes (Fma/[facility]) NEG Hyaline - /Lpf Granular - /Lpf WBC (Fma,[facility]) 0-2 RBC >100 Mucus (Fma/[facility]) - /Lpf Epith RARE /Lpf Bacteria TRACE /Hpf Amorphous (Fma/[facility]) - /Lpf Crystals, Fluid (Fma/[facility]) - Z#Comments - Ua - Non Micro (Fma) 05/15/2019 family medicine Appearance Red (607)- - Color cloudy Glucose, Urine (Fma/[facility]) - Bilirubin - Ketones - SP Grav 1.025 Blood large PH 7.5 Protein - Urobil 0.2 Nitrite - Leukocytes (Fma/[facility]) - CBC Auto Diff 05/15/2019 [facility] [place] White Blood Count 7.0 10^3/uL Normal 3.5- 10.8 Red Blood Count 4.54 10^6/uL Normal 3.70-4.87 Hemoglobin 13.2 g/dL Normal 12.0-16.0 Hematocrit 39 % Normal 35-47 Mean Corpuscular Volume 86 fL Normal 80-97 Mean Corpuscular Hemoglobin 29 pg Normal 27-31 Mean Corpuscular HGB Conc 34 g/dL Normal 31-36 Red Cell Distribution Width 13 % Normal 10-15 Platelet Count 350 10^3/uL Normal 150-450 Mean Platelet Volume 7.2 fL Low 7.4-10.4 Abs Neutrophils 4.9 10^3/uL Normal 1.5-7.7 Abs Lymphocytes 1.4 10^3/uL Normal 1.0-4.8 Abs Monocytes 0.6 10^3/uL Normal 0-0.8 Abs Eosinophils 0.1 10^3/uL Normal 0-0.6 Abs Basophils 0.1 10^3/uL Normal 0-0.2 Abs Nucleated RBC 0.0 10^3/uL Granulocyte % 69.0 % Lymphocyte % 19.9 % Monocyte % 8.4 % Eosinophil % 1.7 % Basophil % 1.0 % Nucleated Red Blood Cells % 0.0 Comp Metabolic Panel 05/15/2019 [facility] [place] Sodium 137 mmol/L Normal 135-145 Potassium 4.2 mmol/L Normal 3.5-5.0 Chloride 105 mmol/L Normal 101-111 Co2 Carbon Dioxide 27 mmol/L Normal 22-32 Anion Gap 5 mmol/L Normal 2-11 Glucose 101 mg/dL High 70-100 Blood Urea Nitrogen 15 mg/dL Normal 6-24 Creatinine 0.76 mg/dL Normal 0.51-0.95 BUN/Creatinine Ratio 19.7 Normal 8-20 Calcium 9.2 mg/dL Normal 8.6-10.3 Total Protein 6.5 g/dL Normal 6.4-8.9 Albumin 4.2 g/dL Normal 3.2-5.2 Globulin 2.3 g/dL Normal 2-4 Albumin/Globulin Ratio 1.8 Normal 1-3 Total Bilirubin 0.40 mg/dL Normal 0.2-1.0 Alkaline Phosphatase 83 U/L Normal 34-104 Alt 19 U/L Normal 7-52 Ast 23 U/L Normal 13-39 Egfr Non- 77.4 >60 Egfr 93.6 >60 1 Urinalysis Profile 05/15/2019 [facility] Urine Color Yellow Urine Appearance Cloudy Urine Specific [place] 1.009 Low 1.010-1.030 Urine pH 9.0 Normal 5-9 Urine Urobilinogen Negative Negative Urine Ketones Negative Negative Urine Protein Negative Negative Urine Leukocytes Negative Negative Urine Blood 3+ Abnormal Negative Urine Nitrite Negative Negative Urine Bilirubin Negative Negative Urine Glucose Negative Negative Urine White Blood Cell Absent Absent Urine Red Blood Cell 3+(>10/hpf) Abnormal Absent Urine Bacteria Absent Absent Urine Amorphous Crystals Present Abnormal Absent 1 Because ethnic data is not always readily available, this report includes an eGFR for both -Americans and non- Americans. The National Kidney Disease Education Program (NKDEP) does not endorse the use of the MDRD equation for patients that are not between the ages of 18 and 70, are , have extremes of body size, muscle mass, or nutritional status, or are non- or non-. According to the National Kidney Foundation, irrespective of diagnosis, the stage of the disease is based on the level of kidney function: Stage Description GFR(mL/min/1.73 m(2)) 1 Kidney damage with normal or decreased GFR 90 2 Kidney damage with mild decrease in GFR 60-89 3 Moderate decrease in GFR 30-59 4 Severe decrease in GFR 15-29 5 Kidney failure <15 (or dialysis) Procedures Date Code Description Status 02/09/2018 [id number] Mammogram Completed Medical Devices Description No Information Available Encounters Type Date Location Provider Dx Diagnosis Office Visit 05/25/2019 [facility] Office Carla Schwartz M.D. R31.0 Gross hematuria 11:00a E03.9 Hypothyroidism, unspecified R03.0 Elevated blood-pressure reading, w/o diagnosis of htn N95.2 Postmenopausal atrophic vaginitis Office Visit 05/15/2019 10:45a [facility] Office Joselin Lamb I16.0 Hypertensive DENA Maloney urgency R31.0 Gross hematuria Assessments Date Code Description Provider 06/07/2019 N20.0 Calculus of kidney Carla Schwartz M.D. 06/07/2019 R11.0 Nausea Carla Schwartz M.D. 05/25/2019 R31.0 Gross hematuria Carla Schwartz M.D. 05/25/2019 E03.9 Hypothyroidism, unspecified Carla Schwartz M.D. 05/25/2019 R03.0 Elevated blood-pressure reading, without Carla Schwartz M.D. diagnosis of hypertension 05/25/2019 N95.2 Postmenopausal atrophic vaginitis Carla Schwartz M.D. 05/15/2019 I16.0 Hypertensive urgency DENA Gurrola 05/15/2019 R31.0 Gross hematuria DENA Gurrola Plan of Treatment Future Appointment(s):09/29/2019 8:40 am - Carla Schwartz M.D. at [facility] Zpbznx2106/07/2019 - Carla Schwartz M.D.N20.0 Calculus of kidneyNew Medication: Zofran 4 mg - every 6 hours as neededComments:hydrocodone as needed for pain, stool softeners for constipation Reviewed adverse side effects of medication. Advised to call the office if experiencing symptoms. Patient verbalized understanding. Reviewed warning signs and symptoms. Reasons to return to office or proceed to emergency room discussed including but not limited to no improvement or worsening of symptoms. Advised to call the office forany questions or concerns. Patient verbalized understanding. consider flomax or Urinary Tract Infection treatment if not qysqnrrbjT80.0 NauseaNew Medication: Docusate Sodium 100 mg - 2 tabs by mouth every night prnAllComments:Medication Management Patient Understands medications she's taking? Yes No Are there Barriers to Adherence? Yes No Has the patient been asked about herbal supplements and therapies, and OTC meds? Yes No Functional Status Description No Information Available Mental Status Description No Information Available Referrals Refer to Reason for Referral Status Appt Date Vitaly Wooten Gross Hematuria jw Sent [address] [place] [address] [place] [address] [phone]
--- OUTSIDE RECORDS SUMMARY | 2019-06-12 03:30 | XMS REPORT | Continuity of Care Document ---
:1960 External Reference #:[id number] Author Name Carla Schwartz M.D. Address [address] [facility] [place] [address] Care Team Providers Name Role Phone Carla Schwartz M.D. 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 Onset: 05/25/2019 Hypothyroidism Carla Schwartz M.D. Onset: 03/03/2018 Social [...] Medications SIG Qnty Indications Ordering Date Provider Estradiol insert 2 grams 42.5units N95.2 Carla Schwartz, 05/25/2019 0.1mg/GM vaginally daily M.D. Cream x 2 weeks then 2 times weekly Diclofenac Sodium apply 4 gm to 300gm M25.561 Carla Schwartz, 09/21/2018 1% right knee joint M.D. Gel twice a day as needed Levothyroxine Sodium 1 by mouth every 90tabs E03.9 Dian 01/29/2018 day Berkley, BOX PRINTER 100mcg Tablets Ventolin HFA take 1-2 puffs [...] Available Vital Signs Date Vital Result Comment 05/25/2019 10:42am BP Systolic 140 mmHg BP Diastolic 90 mmHg BP Systolic Recheck 140 mmHg BP Diastolic Recheck 90 mmHg Heart Rate 78 /min Body Temperature 97.7 F Height 65 inches 5'5" Weight 124.00 lb BMI (Body Mass Index) 20.6 kg/m2 05/15/2019 10:51am BP Systolic 162 mmHg BP Diastolic 90 mmHg BP Systolic Recheck 170 mmHg BP Diastolic Recheck 96 mmHg Heart Rate 68 /min Body Temperature 97.9 F Height 65 inches 5'5" Weight 124.00 lb BMI (Body Mass Index) 20.6 kg/m2 Results Test Acquired Date Facility Test Result H/L Range Note Ua - Non Micro (a) 05/15/2019 family medicine Appearance Red (607)- - Color cloudy Glucose, Urine (Fma/[facility] [place]/CTX) - Bilirubin - Ketones - SP Grav 1.025 Blood large PH 7.5 Protein - Urobil 0.2 Nitrite - Leukocytes (a/[facility] [place]) - CBC Auto Diff 05/15/2019 [facility] [place] White Blood Count 7.0 10^3/uL Normal 3.5- [...] Cells % 0.0 Comp Metabolic Panel 05/15/2019 [facility] [place] Sodium 137 mmol/L Normal 135-145 Potassium 4.2 [...] Egfr 93.6 >60 1 Urinalysis Profile 05/15/2019 [facility] [place] Urine Color Yellow Urine Appearance Cloudy Urine Specific [place] 1.009 Low 1.010-1.030 Urine pH 9.0 Normal [...] dialysis) Procedures Date Code Description Status 02/09/2018 [id number] Mammogram Completed Medical Devices Description No Information Available Encounters Type Date Location Provider Dx Diagnosis Office Visit 05/15/2019 [facility] Office Joselin Maloney, I16.0 Hypertensive urgency 10:45a PA R31.0 Gross hematuria Assessments Date Code Description Provider 05/25/2019 R31.0 Gross hematuria Carla Schwartz M.D. 05/25/2019 E03.9 Hypothyroidism, unspecified Carla Schwartz M.D. 05/25/2019 R03.0 Elevated blood-pressure reading, without Carla Schwartz M.D. diagnosis of hypertension 05/25/2019 N95.2 Postmenopausal atrophic vaginitis Carla Schwartz M.D. 05/15/2019 I16.0 Hypertensive urgency DENA Gurrola 05/15/2019 R31.0 Gross hematuria DENA Gurrola Plan of Treatment 05/25/2019 - Carla Schwartz M.D.R31.0 Gross hematuriaComments:refer zojxbqbN57.9 Hypothyroidism, unspecifiedNew Labs:TSH ([facility]ma/[facility]), Ordered: Free T4 ([facility]ma/[facility]), Ordered: 05/25/19R03.0 Elevated blood-pressure reading , without diagnosis of hypertensionComments:The patient will continue to monitor blood pressure and let me know the blood pressure results if there are readings persistently above 140/90. Goal blood pressure is less than 130/80. Recommend low salt/cardiac diet such as the Mediterranean diet and routine exercise at least 30 minutes a day.N95.2 Postmenopausal atrophic vaginitisNew Medication:Estradiol 0.1 mg/GM - insert 2 grams vaginally daily x 2 weeks then 2 times weeklyComments:trial of estrace cream can consider imvexxy if not improving Reviewed adverse side effects of medication. Advised to call the office if experiencing symptoms. Patient verbalized understanding.Follow up:3-4 mo cpeAllComments:Medication Management Patient Understands medications she's taking? Yes No Are there Barriers to Adherence? Yes No Has the patient been asked about herbal supplements and therapies, and OTC meds? Yes No Functional Status Description No Information Available Mental Status Description No Information Available Referrals Description No Information Available
--- OUTSIDE RECORDS SUMMARY | 2019-06-12 03:30 | XMS REPORT | Continuity of Care Document ---
:1960 External Reference #:[id number] Author Name Carla Schwartz M.D. Address [address] [facility] [place] [address] Care Team Providers Name Role Phone Carla Schwartz M.D. 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 Aleida Soto MD - Sports Medicine Care Team Information Vice President Sales And Marketing Problems Active Problems Provider Date Atrophic vaginitis [...] every 90tabs E03.9 Dian 01/29/2018 day Berkley, CAREER COUNSELOR 100mcg Tablets Ventolin HFA take 1-2 puffs 18gm J45.909 Ruth Wolf 03/07/2017 inhaled every 4 Mario Alberto CODE ENFORCEMENT OFFICER 108(90Base) mcg/Act hours as needed Aerosol for [...] Result H/L Range Note Ua - Micro (a) 05/25/2019 family medicine Appearance YELLOW (607)- - [...] - Z#Comments - Ua - Non Micro (a) 05/15/2019 family medicine Appearance Red (607)- - Color cloudy Glucose, Urine (Fma/[facility]) - Bilirubin - Ketones - SP Grav 1.025 Blood large PH 7.5 Protein - Urobil 0.2 Nitrite - Leukocytes (Fma/[facility]) - CBC Auto Diff 05/15/2019 [facility] [place] White Blood Count 7.0 10^3/uL Normal 3.5- [...] Cells % 0.0 Comp Metabolic Panel 05/15/2019 [facility] [place] Sodium 137 mmol/L Normal 135-145 Potassium 4.2 [...] Color Yellow Urine Appearance Cloudy Urine Specific [place] 1.009 Low 1.010-1.030 Urine pH 9.0 Normal [...] dialysis) Procedures Date Code Description Status 02/09/2018 [id number] Mammogram Completed Medical Devices Description No Information Available Encounters Type Date Location Provider Dx Diagnosis Office Visit 05/15/2019 [facility] Office Joselin Maloney, I16.0 Hypertensive urgency 10:45a [...] 8:40 am - Carla Schwartz M.D. at [facility] [place]/25/2019 - Carla Schwartz M.D.R31.0 Gross hematuriaComments:refer xeamiiwQ10.9 Hypothyroidism, unspecifiedNew Labs:TSH (Fma/[facility]), Ordered : 05/25/19Free T4 (Fma/[facility]), Ordered: 05/25/19R03.0 Elevated blood-pressure reading, without diagnosis of hypertensionComments:The patient will continue [...] Appt Date Vitaly Wooten Gross Hematuria jw Created [address] [place] [id number] [phone]
[2019-06-12 03:45] VITALS: BP 168/98
== END 2019-06-12 03:43 | disposition home or self-care (01) ==
LOC: ED 22:51
DX: R11.2 Nausea with vomiting, unspecified (principal); N20.0 Calculus of kidney; E07.9 Disorder of thyroid, unspecified; I10 Essential (primary) hypertension; J45.909 Unspecified asthma, uncomplicated
CPT/HCPCS: 36415; 74018; 80053; 81003; 81015; 83605; 84443; 85025; 86140; 87040; 87086; 93005; 96361; 96374; 96375; 99284; J0780; J2405

== ENCOUNTER 2019-06-21 08:27 | Day surgery (SDC) | payer OTHER ==
--- NOTE | 2019-06-16 23:40 | HP ---
CC: Dr. Carla Schwartz * HISTORY AND PHYSICAL: DATE OF PLANNED ADMISSION AND SURGERY: 06/21/19 Please refer to the detailed history and physical on this patient for her recent admission on 06/03/19. HISTORY OF PRESENT ILLNESS: Ms. Collier is a 59-year-old white female who had a right ureteroscopy and right ureteral stent insertion on 06/03/19 because of a 5 - to 6-mm proximal right ureteral calculus associated with [id number] hydronephrosis and recurrent episodes of gross hematuria. At the time of the ureteroscopy, the stone migrated back into her kidney and ureteral stent inserted. The patient developed significant stent discomfort giving her recurrent nausea and vomiting and some abdominal and flank pain. KUB confirmed that the stone had migrated into the lower pole calyx of the right kidney. Because of the significant stent discomfort, the patient underwent cystoscopy and removal of right ureteral stent in the office on 06/15/19. She improved following the procedure. PLAN: Although the stone is relatively small, it had caused her problems recently and the plan now is for shock wave lithotripsy of the right renal calculus. There have not been any changes in her general medical condition or in her medications or physical exam since her recent admission. I discussed the above plans with the patient and her and all their questions were answered. [id number]/[facility] #: [id number] NISHI
[~2019-06-21 08:27] MED LIST changes: +Dexamethasone IV* 4 MG/ML 1 ML (4 MG) IV SLOW PU ONE; +Famotidine IV* 10 MG/ML 2 ML (20 mg) IV ONE; +Lactated Ringers 1000 ML Bag* 1,000 ML IV SCH
[2019-06-21] MEDS ORDERED: cefTRIAXone(*) 1 GM ADVAN/BAG ONE (09:18)
[2019-06-21] MEDS ORDERED: Dexamethasone IV* 4 MG/ML 1 ML (4 MG) ONE (09:18)
[2019-06-21] MEDS ORDERED: Famotidine IV* 10 MG/ML 2 ML (20 mg) ONE (09:18)
[2019-06-21] MEDS ORDERED: Midazolam* 1 MG/ML 2 ML VIAL (2 MG) ONE (09:35)
[2019-06-21] MEDS ORDERED: Ketorolac INJ* 30 MG/ML 1 ML VIAL ONE (09:35)
[2019-06-21] MEDS ORDERED: fentaNYL* 50 MCG/ML 2 ML VIAL (100 MCG VIAL) ONE (09:35)
[2019-06-21] MEDS ORDERED: Glycopyrrolate IV* 0.2 MG/ML 1 ML VIAL ONE (09:35)
[2019-06-21] MEDS ORDERED: Ondansetron INJ* 2 MG/ML VIAL ONE (09:35)
[2019-06-21] MEDS ORDERED: Propofol* 10 MG/ML 20 ML BTL ONE (09:35)
[2019-06-21 12:08] VITALS: BP 167/97
--- NOTE | 2019-06-22 01:55 | OP ---
CC: Dr. Carla Schwartz * DATE OF OPERATION: 06/21/19 - [facility] DATE OF : 56 SURGEON: Kamari Storm MD ANESTHESIOLOGIST: Dr. Marx. ANESTHESIA: Monitoring, none. PRE-OP DIAGNOSIS: History of right renal calculus. POST-OP DIAGNOSIS: Non-visualized right renal calculus. PROCEDURE: Fluoroscopy of right kidney in the OR INDICATIONS FOR PROCEDURE: Ms. Collier is a 59-year-old white female who presented with gross hematuria and a partially obstructing proximal right ureteral calculus. She previously had a cystoscopy and Rt ureteroscopy and right ureteral stent insertion. The stone migrated back in her kidney and was noted on KUB to be located in the lower pole calyx. Because of stent discomfort , the stent was removed in the office last week. The patient was asked to strain her urine and to report if the stone has passed. She did not notice any stone passage and had no episodes of renal colic. The patient now is brought in with the plan to perform shockwave lithotripsy on the right renal calculus. PATHOLOGY: Preoperative KUB did not show any radiopaque calculus in the right kidney. Decision was made to proceed with fluoroscopy on the shockwave lithotripsy table before initiating any anesthesia. If the calculus were visualized, the plan would be to give her the anesthesia and then to proceed with shockwave lithotripsy. If the stone is not visualized, no anesthetic will be given and the procedure would not be performed. DESCRIPTION OF PROCEDURE: The patient was placed on the shockwave lithotripsy table and no anesthetic was given. Dr. Marx was monitoring the patient, but did not give her any sedation or anesthesia. Fluoroscopy of the right kidney was then performed in various angles including the PA and the oblique views. Fluoroscopy was compared with the most recent KUB. The calculus that was previously noted in the lower pole calyx of the right kidney was not visualized on today's fluoroscopy or KUB. With that finding, no anesthetic was given and the patient was taken back to the PACU and she will be discharged home from there. The patient will be seen in the office for followup and a renal ultrasound will be obtained. [id number]/[facility] #: [id number] MTDD
== END 2019-06-21 11:30 | disposition home or self-care (01) ==
LOC: OR 08:27
PROVIDERS: ATTEND Urology
DX: N20.0 Calculus of kidney (principal); Z53.09 Procedure and treatment not carried out because of other contraindication; J45.909 Unspecified asthma, uncomplicated; E03.9 Hypothyroidism, unspecified
CPT/HCPCS: 74018; J0696; J1100; J1885; J2250; J2405; J2704; J3010